=== PATIENT | female | born 1960 | race Caucasian/White ===

== ENCOUNTER 2016-12-31 04:52 | Inpatient (IN) | payer SELFPAY ==
[~2016-12-31] VITALS: Ht 160 cm; Wt 59.7 kg
[2016-12-31] MEDS ORDERED: SODIUM CHLORIDE FLUSH 10ML SYR IVF ONE (05:30)
[2016-12-31] MEDS ORDERED: VANCOMYCIN 1,200 MG in SODIUM CHLORIDE 0.9% 250 ML IV ONE (05:30)
[2016-12-31] MEDS ORDERED: AMPICILLIN/SULBACTAM 3 GM IV ONE (05:30)
[2016-12-31] MEDS ORDERED: VANCOMYCIN PER PHARMACY MC ONE (05:30)
[2016-12-31] MEDS ORDERED: DIPH,PERTUSS(ACELL),TET VAC/PF 0.5 ML IM-VACC ONE ×2 (05:30→06:01)
[2016-12-31] MEDS ORDERED: SODIUM CHLORIDE 0.9% 1,000ML IVBOLUS ONE (05:30)
[2016-12-31] MEDS ORDERED: BACITRACIN ZINC OINT 500U/GM, 0.9 GM ONE (06:01)
[2016-12-31 06:48] LABS: BLOOD UREA NITROGEN 14 mg/dL (7-18)
[2016-12-31] MEDS: SODIUM CHLORIDE 0.9% 1,000 ML IV SCH ×2 (07:58→15:16)
[2016-12-31] MEDS ORDERED: ONDANSETRON ODT 4 MG PO PRN (08:00)
[2016-12-31] MEDS ORDERED: ONDANSETRON 2MG/ML, 2ML IVPush PRN (08:00)
[2016-12-31] MEDS ORDERED: POLYETHYLENE GLYCOL 17 GM PACKET PO PRN (08:00)
[2016-12-31] MEDS ORDERED: LABETALOL 5MG/ML, 20ML IVPush PRN (08:00)
[2016-12-31] MEDS ORDERED: GUAIFENESIN/DM 200-20MG, 10ML UDC PO PRN (08:00)
[2016-12-31] MEDS: AMPICILLIN/SULBACTAM 3 GM in SODIUM CHLORIDE 0.9% 100 ML IV SCH ×3 (08:10→21:03)
[2016-12-31] MEDS ORDERED: VANCOMYCIN PER PHARMACY MC PRN (08:30)
[2016-12-31 08:33] VITALS: BP 110/52
[2016-12-31] MEDS: SENNA/DOCUSATE TABLET PO SCH (09:00)
[2016-12-31] MEDS ORDERED: PHARMACOKINETIC MONITORING MC PRN (09:00)
[2016-12-31 11:52] LABS: HIV 1&2 ANTIBODY SCREEN Nonreactive (Nonreactive)
[2016-12-31 11:53] LABS: HIV-1 p24 ANTIGEN Nonreactive (Nonreactive)
[2016-12-31 12:55] VITALS: BP 100/66
[2016-12-31] MEDS: VANCOMYCIN 1,200 MG in SODIUM CHLORIDE 0.9% 250 ML IV SCH (18:24)
[2016-12-31] MEDS ORDERED: MORPHINE SULFATE 4 MG/ML, 1ML ONE (18:47)
[2016-12-31] MEDS ORDERED: MORPHINE SULFATE 4 MG/ML, 1ML IVPush ONE (19:00)
[2016-12-31 20:20] VITALS: BP 122/73
[2017-01-01 02:45] VITALS: BP 90/59
[2017-01-01] MEDS: SODIUM CHLORIDE 0.9% 1,000 ML IV SCH ×2 (03:25→08:35)
[2017-01-01] MEDS: AMPICILLIN/SULBACTAM 3 GM in SODIUM CHLORIDE 0.9% 100 ML IV SCH ×3 (03:25→18:04)
[2017-01-01 06:39] VITALS: BP 92/59
[2017-01-01 07:05] LABS: ASPARTATE AMINO TRANSFERASE 41 U/L (15-37); BLOOD UREA NITROGEN 7 mg/dL (7-18)
[2017-01-01 08:03] LABS: DIFF TOTAL CELLS COUNTED 100 CELL DIFF
[2017-01-01 08:08] LABS: VERIFY COUNTS? YES
[2017-01-01 08:11] LABS: GIANT PLATELETS 1+; LARGE PLATELETS 1+
[2017-01-01] MEDS: VANCOMYCIN 1,200 MG in SODIUM CHLORIDE 0.9% 250 ML IV SCH ×2 (08:35→20:29)
[2017-01-01] MEDS: SENNA/DOCUSATE TABLET PO SCH (09:00)
[2017-01-01] MEDS ORDERED: FENTANYL PF 100 MCG/2ML ONE ×2 (10:54→10:55)
[2017-01-01] MEDS ORDERED: MIDAZOLAM 1 MG/ML, 5ML ONE (10:54)
[2017-01-01] MEDS ORDERED: NALOXONE 1 MG/ML, 2ML ONE (10:55)
[2017-01-01] MEDS ORDERED: GADOBUTROL 7.5 MMOL/7.5 ML PFS ONE (12:01)
[2017-01-01 12:47] VITALS: BP 124/76
[2017-01-01 12:50] LABS: DAU SCREEN DISCLAIMER
[2017-01-01 20:12] VITALS: BP 99/64
[2017-01-02 01:36] VITALS: BP 102/62
[2017-01-02] MEDS: SODIUM CHLORIDE 0.9% 1,000 ML IV SCH ×2 (05:07→12:58)
[2017-01-02 05:50] LABS: ASPARTATE AMINO TRANSFERASE 72 U/L (15-37); BLOOD UREA NITROGEN 6 mg/dL (7-18)
[2017-01-02 05:51] LABS: HIV 1&2 ANTIBODY SCREEN Nonreactive (Nonreactive); HIV-1 p24 ANTIGEN Nonreactive (Nonreactive)
[2017-01-02 06:45] VITALS: BP 159/80
[2017-01-02] MEDS: SENNA/DOCUSATE TABLET PO SCH (08:14)
[2017-01-02] MEDS: VANCOMYCIN 1,200 MG in SODIUM CHLORIDE 0.9% 250 ML IV SCH (08:14)
[2017-01-02] MEDS ORDERED: CEFAZOLIN 2,000 MG in SODIUM CHLORIDE 0.9% 50 ML IV SCH (12:00)
[2017-01-02 13:30] VITALS: BP 137/76
[2017-01-02] MEDS: CEFAZOLIN PMX 2GM/50ML 50 ML IVPB SCH ×2 (14:46→22:07)
[2017-01-02 19:01] VITALS: BP 122/70
[2017-01-02] MEDS ORDERED: CEFAZOLIN PMX 2GM/100ML 100 ML IVPB SCH (20:00)
[2017-01-03 01:44] VITALS: BP 120/68
[2017-01-03] MEDS ORDERED: ACETAMINOPHEN 325 MG TABLET PO PRN (02:30)
[2017-01-03] MEDS: SODIUM CHLORIDE 0.9% 1,000 ML IV SCH ×3 (04:50→23:18)
[2017-01-03 05:29] LABS: BLOOD UREA NITROGEN 3 mg/dL (7-18)
[2017-01-03 05:34] LABS: ASPARTATE AMINO TRANSFERASE 32 U/L (15-37)
[2017-01-03] MEDS: CEFAZOLIN PMX 2GM/50ML 50 ML IVPB SCH ×3 (05:53→23:18)
[2017-01-03 06:38] VITALS: BP 136/85
[2017-01-03] MEDS ORDERED: POTASSIUM CHLORIDE 20 MEQ TAB.ER.PRT PO ONE ×2 (08:00→11:00)
[2017-01-03] MEDS: SENNA/DOCUSATE TABLET PO SCH (08:07)
[2017-01-03 11:06] LABS: HEPATITIS B SURFACE AG SCREEN Negative (Negative)
[2017-01-03 12:37] VITALS: BP 111/70
[2017-01-03 14:30] LABS: BLOOD UREA NITROGEN 3 mg/dL (7-18)
[2017-01-03 18:46] VITALS: BP 143/74
[2017-01-03 20:48] LABS: DAU SCREEN DISCLAIMER
[2017-01-03] MEDS: NICOTINE 21 MG/24 HR PATCH.TD24 TD SCH (22:13)
[2017-01-04 02:05] VITALS: BP 128/76
[2017-01-04] MEDS: CEFAZOLIN PMX 2GM/50ML 50 ML IVPB SCH ×3 (06:37→22:57)
[2017-01-04 07:01] LABS: BLOOD UREA NITROGEN 2 mg/dL (7-18)
[2017-01-04] MEDS: SODIUM CHLORIDE 0.9% 1,000 ML IV SCH (07:56)
[2017-01-04] MEDS: SENNA/DOCUSATE TABLET PO SCH ×2 (07:56→07:59)
[2017-01-04] MEDS: NICOTINE 21 MG/24 HR PATCH.TD24 TD SCH (07:58)
[2017-01-04 08:26] VITALS: BP 133/81
[2017-01-04 12:06] LABS: HEPATITIS C PCR QUANTITATION HCV Not Detected IU/mL (.)
[2017-01-04] MEDS ORDERED: POTASSIUM CHLORIDE 20 MEQ TAB.ER.PRT PO ONE ×3 (12:30→21:30)
[2017-01-04 15:45] VITALS: BP 145/79
[2017-01-04] MEDS: POTASSIUM CHLORIDE 20 MEQ TAB.ER.PRT PO SCH ×3 (15:48→20:11)
[2017-01-04 21:07] VITALS: BP 130/78
[2017-01-05 02:03] VITALS: BP 136/84
[2017-01-05 04:57] LABS: BLOOD UREA NITROGEN 5 mg/dL (7-18)
[2017-01-05 05:10] LABS: ASPARTATE AMINO TRANSFERASE 21 U/L (15-37)
[2017-01-05] MEDS: CEFAZOLIN PMX 2GM/50ML 50 ML IVPB SCH ×3 (07:42→22:50)
[2017-01-05] MEDS: SENNA/DOCUSATE TABLET PO SCH (07:45)
[2017-01-05 08:00] VITALS: BP 148/90
[2017-01-05 14:00] VITALS: BP 126/78
[2017-01-05] MEDS: NICOTINE 21 MG/24 HR PATCH.TD24 TD SCH (17:48)
[2017-01-05 20:23] VITALS: BP 144/82
[2017-01-06 01:01] VITALS: BP 143/84
[2017-01-06 06:32] LABS: BLOOD UREA NITROGEN 9 mg/dL (7-18)
[2017-01-06 08:00] VITALS: BP 148/89
[2017-01-06] MEDS: CEFAZOLIN PMX 2GM/50ML 50 ML IVPB SCH ×3 (08:22→23:09)
[2017-01-06] MEDS: SENNA/DOCUSATE TABLET PO SCH (08:22)
[2017-01-06] MEDS: NICOTINE 21 MG/24 HR PATCH.TD24 TD SCH (08:22)
[2017-01-06] MEDS ORDERED: MAGNESIUM SULFATE PMX 4GM/100M 100 ML IV ONE (08:30)
[2017-01-06 12:45] VITALS: BP 119/69
[2017-01-06 19:34] VITALS: BP 115/72
[2017-01-07 02:48] VITALS: BP 118/67
[2017-01-07 07:08] VITALS: BP 137/73
[2017-01-07] MEDS: CEFAZOLIN PMX 2GM/50ML 50 ML IVPB SCH ×3 (07:33→23:06)
[2017-01-07] MEDS: SENNA/DOCUSATE TABLET PO SCH (07:34)
[2017-01-07 09:05] LABS: BLOOD UREA NITROGEN 12 mg/dL (7-18)
[2017-01-07] MEDS: NICOTINE 21 MG/24 HR PATCH.TD24 TD SCH (10:11)
[2017-01-07 13:11] VITALS: BP 114/72
[2017-01-07] MEDS ORDERED: CATHFLO-ALTEPLASE 2 MG/2 ML CATHFLUSH ONE (16:30)
[2017-01-07 19:30] VITALS: BP 110/67
[2017-01-08 02:01] VITALS: BP 137/82
[2017-01-08 02:27] VITALS: BP 124/72
[2017-01-08] MEDS ORDERED: CATHFLO-ALTEPLASE 2 MG/2 ML CATHFLUSH ONE ×2 (06:30)
[2017-01-08 06:44] VITALS: BP 103/67
[2017-01-08] MEDS: CEFAZOLIN PMX 2GM/50ML 50 ML IVPB SCH ×3 (08:10→22:53)
[2017-01-08] MEDS: NICOTINE 21 MG/24 HR PATCH.TD24 TD SCH (10:29)
[2017-01-08] MEDS: SENNA/DOCUSATE TABLET PO SCH (10:29)
[2017-01-08 12:40] LABS: ASPARTATE AMINO TRANSFERASE 27 U/L (15-37); BLOOD UREA NITROGEN 22 mg/dL (7-18)
[2017-01-08 13:50] VITALS: BP 109/70
[2017-01-08 18:28] VITALS: BP 113/77
[2017-01-09 03:35] VITALS: BP 105/77
[2017-01-09 04:10] LABS: BLOOD UREA NITROGEN 27 mg/dL (7-18)
[2017-01-09] MEDS: SENNA/DOCUSATE TABLET PO SCH (07:35)
[2017-01-09] MEDS: CEFAZOLIN PMX 2GM/50ML 50 ML IVPB SCH ×3 (07:35→23:06)
[2017-01-09] MEDS: NICOTINE 21 MG/24 HR PATCH.TD24 TD SCH (07:36)
[2017-01-09 09:03] VITALS: BP 103/65
[2017-01-09 16:10] VITALS: BP 104/68
[2017-01-09] MEDS: TRAZODONE 50MG TABLET PO PRN (19:20)
[2017-01-09 19:48] VITALS: BP 93/61
[2017-01-10 02:00] VITALS: BP 106/70
[2017-01-10 07:24] VITALS: BP 120/76
[2017-01-10] MEDS: SENNA/DOCUSATE TABLET PO SCH (07:46)
[2017-01-10] MEDS: CEFAZOLIN PMX 2GM/50ML 50 ML IVPB SCH ×2 (07:46→15:35)
[2017-01-10] MEDS: NICOTINE 21 MG/24 HR PATCH.TD24 TD SCH (09:00)
[2017-01-10 12:40] VITALS: BP 127/86
[2017-01-10] MEDS: TRAZODONE 50MG TABLET PO PRN (18:11)
[2017-01-10 19:18] VITALS: BP 108/71
[2017-01-11] MEDS: CEFAZOLIN PMX 2GM/50ML 50 ML IVPB SCH ×2 (00:04→07:00)
[2017-01-11 00:12] VITALS: BP 104/73
[2017-01-11 04:43] LABS: BLOOD UREA NITROGEN 19 mg/dL (7-18)
[2017-01-11] MEDS ORDERED: CEPH-368 PO (07:00)
[2017-01-11 07:25] VITALS: BP 110/74
[2017-01-11] MEDS: NICOTINE 21 MG/24 HR PATCH.TD24 TD SCH (08:04)
[2017-01-11] MEDS: SENNA/DOCUSATE TABLET PO SCH (08:11)
== END 2017-01-11 08:35 | disposition home or self-care (01) | DRG 871 ==
LOC: ED 07:21 → EDIP 07:22 → ED 07:35 → 3NE 08:27
PROC: 02HV33Z Insertion of Infusion Device into Superior Vena Cava, Percutaneous Approach (ICD-10-PCS; principal; 2016-12-31)
PROC: B5181ZA Fluoroscopy of Superior Vena Cava using Low Osmolar Contrast, Guidance (ICD-10-PCS; 2016-12-31)
PROC: B548ZZA Ultrasonography of Superior Vena Cava, Guidance (ICD-10-PCS; 2016-12-31)
DX: A41.1 Sepsis due to other specified staphylococcus (principal); E43 Unspecified severe protein-calorie malnutrition; B19.10 Unspecified viral hepatitis B without hepatic coma; E87.1 Hypo-osmolality and hyponatremia; N39.0 Urinary tract infection, site not specified; F17.213 Nicotine dependence, cigarettes, with withdrawal; L03.113 Cellulitis of right upper limb; L03.011 Cellulitis of right finger; B19.20 Unspecified viral hepatitis C without hepatic coma; D69.6 Thrombocytopenia, unspecified; E87.6 Hypokalemia; B95.61 Methicillin susceptible Staphylococcus aureus infection as the cause of diseases classified elsewhere; B95.1 Streptococcus, group B, as the cause of diseases classified elsewhere; F12.90 Cannabis use, unspecified, uncomplicated; I88.9 Nonspecific lymphadenitis, unspecified; M65.9 Synovitis and tenosynovitis, unspecified; Z88.5 Allergy status to narcotic agent; Z83.3 Family history of diabetes mellitus; Z82.49 Family history of ischemic heart disease and other diseases of the circulatory system; Z71.51 Drug abuse counseling and surveillance of drug abuser; Z71.6 Tobacco abuse counseling; Z68.23 Body mass index [BMI] 23.0-23.9, adult
CPT/HCPCS: 36415; 36569; 76700; 76937; 77001; 80048; 80053; 80202; 80307; 81001; 82040; 83605; 83735; 84100; 84145; 84439; 85025; 85610; 85651; 86140; 86592; 86703; 86704; 86706; 86708; 86803; 87040; 87070; 87077; 87086; 87106; 87147; 87181; 87186; 87205; 87340; 87491; 87521; 87522; 87591; 87899; 90471; 90715; 93306; 93970; 96361; 96365; A9585; J0295; J0690; J2250; J2997; J3010; J3370; C1751; G0435; J2310; J3475; J7030; J7050

== ENCOUNTER 2018-09-13 11:31 | Emergency (ER) | payer MEDICAID ==
[~2018-09-13] VITALS: Ht 162.6 cm; Wt 64.5 kg
[~2018-09-13 11:31] MED LIST: CEPH-368 PO
[2018-09-13 11:35] VITALS: BP 132/78
--- NOTE | 2018-09-13 11:41 | NUR ---
Splinter of wood under R 4th fingernail x 1 wk.
[2018-09-13] MEDS ORDERED: LIDOCAINE-MPF 1%, 5ML ONE (11:57)
[2018-09-13] MEDS ORDERED: LIDOCAINE-MPF 1%, 5ML INFIL ONE (12:00)
[2018-09-13] MEDS ORDERED: BACITRACIN ZINC OINT 500U/GM, 0.9 GM ONE (12:10)
--- NOTE | 2018-09-13 12:28 | NUR ---
Wound irrigated, dressed w/ bacitracin. Patient given discharge instructions and they have confirmed that they understand the instructions. Patient ambulatory with steady gait.
== END 2018-09-13 12:30 | disposition home or self-care (01) ==
LOC: ED 12:24
DX: S60.454A Superficial foreign body of right ring finger, initial encounter (principal); X58.XXXA Exposure to other specified factors, initial encounter; Y93.89 Activity, other specified; Y92.89 Other specified places as the place of occurrence of the external cause; Y99.8 Other external cause status
CPT/HCPCS: 99284